=== PATIENT | male | born 1980 | race Caucasian/White ===

== ENCOUNTER 2017-01-25 13:21 | Emergency (ER) | payer MEDICAID ==
--- NOTE | 2017-01-25 13:48 | ED Physician Documentation ---
PD HPI LOWER EXT INJURY - Stated complaint Stated Complaint: KNEE LAC - Chief complaint Chief Complaint: Ext Problem - History obtained from History obtained from: Patient - History of Present Illness PD HPI LOW EXT INJURY LOCATION: Left, Knee Type of injury: Laceration (slip and slide last night and slid over piece of glass, cut to lateral aspect knee/proximal lower leg. It was cleaned out. Lac opens with ROM of the knee.) Timing - onset: Last night Timing - details: Abrupt onset, Still present Worsened by: Palpating, Other (knee movement; he does not feel there is FB present.) Associated symptoms: No: Weakness, Numbness Similar symptoms before: Has not had sx before Recently seen: Not recently seen Review of Systems Musculoskeletal: denies: Extremity swelling Neurologic: denies: Focal weakness, Numbness PD PAST MEDICAL HISTORY - Past Medical History Cardiovascular: Hypertension Neuro: Headache/migraine - Past Surgical History Past Surgical History: No - Present Medications Home Medications: Ambulatory Orders Medication Instructions Recorded Confirmed Quetiapine Fumarate [Seroquel] 300 mg PO BID 01/25/17 01/25/17 - Allergies Allergies/Adverse Reactions: Allergies Allergy/AdvReac Type Severity Reaction Status Date / Time acetaminophen [From Vicodin] Allergy Unknown Verified 03/09/16 01:06 hydrocodone bitartrate * Allergy Unknown Verified 03/09/16 01:06 [From Vicodin] - Social History Does the pt smoke?: Yes Smoking Status: Current every day smoker Does the pt drink ETOH?: No Does the pt have substance abuse?: Yes - Immunizations Immunizations are current?: Yes - POLST Patient has POLST: No PD ED PE NORMAL - Vitals Vital signs reviewed: Yes - General General: Alert and oriented X 3, No acute distress, Well developed/nourished - Derm Derm: Normal color, Warm and dry - Extremities Extremities: Other (left knee anterolateral at lower knee/upper lower leg with abrasion more anteriorly and laceration to side. It is 3 cm size and goes to fatty layer. Muscle just visible but does not seem involved. No FB seen. ) - Neuro Neuro: No motor deficit, No sensory deficit Results - Vitals Vitals: Oxygen O2 Source Room air Procedures - Laceration (location) left knee laterally Length in cm: 3 Wound type: Linear, Into subcut fat, Clean Neurovascular status: Sensory intact, Motor intact Tendon involvement: Tendon intact Skin layer closure: Nylon, Running, Size #-0 - enter number (4) Other: Patient tolerated well, No complications, Neurovascular intact, Dressing applied, Tetanus UTD Complexity: Simple PD MEDICAL DECISION MAKING - ED course Complexity details: considered differential (lac opens with ROM of the knee. Just to fatty layer, barely into muscle. Good ROM of the knee. ), d/w patient Departure - Departure Disposition: 01 Home, Self Care Clinical Impression: Knee laceration Qualifiers: Encounter type: initial encounter Laterality: left Qualified Code(s): S81.012A - Laceration without foreign body, left knee, initial encounter Knee abrasion Qualifiers: Encounter type: initial encounter Laterality: left Qualified Code(s): S80.212A - Abrasion, left knee, initial encounter Accidental fall Qualifiers: Encounter type: initial encounter Qualified Code(s): W19.XXXA - Unspecified fall, initial encounter Condition: Stable Record reviewed to determine appropriate education?: Yes Instructions: ED Abrasion, ED Laceration Ext Sutr Stap Tape Comments: It is okay to wash and shower. Clean off the wound twice a day with soap and water, or peroxide and water. Apply some antibiotic ointment to it to keep it moist. Also to watch for signs of infection such as purulence, redness or increasing pain. Return to your primary care or the ER at the specified time for suture removal. Tylenol or ibuprofen if needed for pains. Suture removal about 10 or 12 days. Discharge Date/Time: 01/25/17 15:00
[2017-01-25 15:05] VITALS: BP 140/89
== END 2017-01-25 15:00 | disposition home or self-care (01) ==
LOC: ED 13:21
DX: S81.012A Laceration without foreign body, left knee, initial encounter (principal); S80.212A Abrasion, left knee, initial encounter; W01.0XXA Fall on same level from slipping, tripping and stumbling without subsequent striking against object, initial encounter; I10 Essential (primary) hypertension; F17.200 Nicotine dependence, unspecified, uncomplicated
CPT/HCPCS: 12002; 99282; 99283

== ENCOUNTER 2017-03-11 14:01 | Emergency (ER) | payer MEDICAID ==
[2017-03-11] MEDS ORDERED: IBUPROFEN 800 MG TABLET PO STA (14:15)
[2017-03-11] MEDS ORDERED: CLINDAMYCIN 900 MG/50 ML 50 ML IV ONE ×2 (14:16→14:22)
--- NOTE | 2017-03-11 14:18 | ED Physician Documentation ---
PD HPI HEENT - Stated complaint Stated Complaint: FACIAL SWELLING - Chief complaint Chief Complaint: Heent - History obtained from History obtained from: Patient - History of Present Illness Timing - onset: Yesterday Timing - details: Gradual onset Location: Tooth Associated symptoms: Facial swelling, Headache Similar symptoms before: Diagnosis (Past history of dental abscesses in lower molars.) - Additional information Additional information: The patient is a 36-year-old male who presents with left facial swelling and toothache of a left upper molar. The pain started yesterday and is worse today. He feels like his left ear is plugged, and he has associated headache. He denies fever or sore throat. Past history is significant for tooth abscesses involving the lower molars. Review of Systems Constitutional: denies: Fever Eyes: denies: Decreased vision Ears: reports: Ear pain (left) Nose: denies: Congestion Throat: reports: Dental pain / toothache. denies: Sore throat Respiratory: denies: Dyspnea, Cough GI: denies: Nausea, Vomiting Skin: denies: Rash Musculoskeletal: denies: Neck pain Neurologic: reports: Headache PD PAST MEDICAL HISTORY - Past Medical History Past Medical History: Yes Cardiovascular: Hypertension Neuro: Headache/migraine - Past Surgical History Past Surgical History: No - Present Medications Home Medications: Ambulatory Orders Medication Instructions Recorded Confirmed Clindamycin [Cleocin] 300 mg PO Q6H 7 Days 03/11/17 oxyCODONE/ACET 5/325 [Percocet 5 1 - 2 tab PO Q4-6H PRN #12 tablet 03/11/17 mg/325 mg] - Allergies Allergies/Adverse Reactions: Allergies Allergy/AdvReac Type Severity Reaction Status Date / Time acetaminophen [From Vicodin] Allergy Unknown Verified 03/09/16 01:06 hydrocodone bitartrate * Allergy Unknown Verified 03/09/16 01:06 [From Vicodin] - Social History Does the pt smoke?: Yes Smoking Status: Current every day smoker Does the pt drink ETOH?: No Does the pt have substance abuse?: Yes - Immunizations Immunizations are current?: Yes - POLST Patient has POLST: No PD ED PE NORMAL - Vitals Vital signs reviewed: Yes (Initially hypertensive.) - General General: Alert and oriented X 3, Well developed/nourished - HEENT HEENT: Atraumatic, PERRL, EOMI, Ears normal, Pharynx benign, Other (Multiple decayed teeth are noted, with tenderness to palpation of the left upper molar. There is no gingival swelling. There is left facial swelling in the maxillary region, with associated tenderness to palpation.) - Neck Neck: Supple, no meningeal sign, No adenopathy - Cardiac Cardiac: RRR, No murmur - Respiratory Respiratory: No respiratory distress, Clear bilaterally - Abdomen Abdomen: Soft, Non tender - Derm Derm: No rash - Neuro Neuro: Alert and oriented X 3, No motor deficit, Normal speech Results - Vitals Vitals: Vital Signs - 24 hr 03/11/17 03/11/17 03/11/17 14:06 14:40 14:41 Temperature 36.3 C L Heart Rate 71 54 L 57 L Respiratory 18 22 20 Rate Blood Pressure 159/101 H 98/57 L 113/73 O2 Saturation 99 99 96 03/11/17 15:03 Temperature Heart Rate 68 Respiratory 18 Rate Blood Pressure 122/86 H O2 Saturation 97 Oxygen O2 Source Room air PD MEDICAL DECISION MAKING - ED course Complexity details: reviewed old records, re-evaluated patient, considered differential, d/w patient, d/w family ED course: The patient's presentation is significant for dental abscess with facial swelling. The abscess is not readily amenable to intraoral drainage. Treatment in the emergency department included administration of clindamycin 900 mg IV, and ibuprofen 800 mg orally. He is being discharged with prescriptions for clindamycin and for Percocet, 15 tablets. I discussed with him and his the importance of continued antibiotic therapy, dental follow- up, as well as potentially worrisome signs or symptoms that should prompt reevaluation in the emergency department. Departure - Departure Disposition: 01 Home, Self Care Clinical Impression: Dental abscess Condition: Stable Instructions: ED Abscess Dental Prescriptions: Clindamycin [Cleocin] 300 mg PO Q6H 7 Days oxyCODONE/ACET 5/325 [Percocet 5 mg/325 mg] 1 - 2 tab PO Q4-6H PRN #12 tablet PRN Reason: Pain Comments: Take clindamycin 4 times daily as prescribed. You can use ibuprofen or Naprosyn for its anti-inflammatory effect. You can use Percocet as prescribed if needed for pain. Follow up with a dentist as soon as possible. Call to schedule an appointment. Return to the emergency department if you develop increasing facial swelling, increasing pain, or otherwise worsening symptoms. Discharge Date/Time: 03/11/17 15:32
[2017-03-11] MEDS ORDERED: IBUPROFEN 800 MG TABLET PO ONE (14:22)
[2017-03-11 15:04] VITALS: BP 122/86
== END 2017-03-11 15:32 | disposition home or self-care (01) ==
LOC: ED 14:01
DX: K04.7 Periapical abscess without sinus (principal); I10 Essential (primary) hypertension; F17.200 Nicotine dependence, unspecified, uncomplicated
CPT/HCPCS: 96365; 99283; A9270

== ENCOUNTER 2019-03-31 23:48 | Emergency (ER) | payer MEDICAID ==
--- NOTE | 2019-04-01 01:46 | ED Physician Documentation ---
PD HPI HEENT - Stated complaint Stated Complaint: TOOTH PAIN/SWELLING - Chief complaint Chief Complaint: Heent - History obtained from History obtained from: Patient - History of Present Illness Timing - onset: How many days ago (3) Timing - duration: Days Timing - details: Gradual onset Pain level now: 6 Location: Tooth Improves: Nothing Associated symptoms: No: Fever Recently seen: Not recently seen - Additional information Additional information: c/o right jaw pain and swelling x 3 days, started with localized pain adjacent to broken tooth 3 days ago. Review of Systems Constitutional: denies: Fever Throat: reports: Dental pain / toothache PD PAST MEDICAL HISTORY - Past Medical History Past Medical History: Yes Cardiovascular: Hypertension - Past Surgical History Past Surgical History: No - Present Medications Home Medications: Ambulatory Orders Medication Instructions Recorded Confirmed Clindamycin [Cleocin] 300 mg PO Q6H 7 Days capsule 03/11/17 oxyCODONE/ACET 5/325 [Percocet 5 1 - 2 tab PO Q4-6H PRN #12 tablet 03/11/17 mg/325 mg] Clindamycin HCl [Clindamycin 300MG 300 mg PO Q6H #28 capsule 04/01/19 CAP] Oxycodone HCl/Acetaminophen 1 - 2 each PO Q6H PRN #14 tablet 04/01/19 [Percocet 5-325 mg Tablet] - Allergies Allergies/Adverse Reactions: Allergies Allergy/AdvReac Type Severity Reaction Status Date / Time acetaminophen [From Vicodin] Allergy Unknown Verified 03/09/16 01:06 hydrocodone bitartrate * Allergy Unknown Verified 03/09/16 01:06 [From Vicodin] - Social History Does the pt smoke?: Yes Smoking Status: Current every day smoker Does the pt drink ETOH?: No Does the pt have substance abuse?: Yes - Immunizations Immunizations are current?: Yes - POLST Patient has POLST: No PD ED PE NORMAL - Vitals Vital signs reviewed: Yes - General General: Alert and oriented X 3, No acute distress, Well developed/nourished - HEENT HEENT: Moist mucous membranes PD ED PE EXPANDED - HEENT HEENT: Dental TTP (right mandibular second premolar; no swelling or erythema noted (neither introaral nor facial)) Results - Vitals Vitals: Oxygen O2 Source Room air PD MEDICAL DECISION MAKING - ED course Complexity details: reviewed old records, considered differential, d/w patient Departure - Departure Disposition: 01 Home, Self Care Clinical Impression: Dental infection Condition: Good Instructions: ED Tooth Pain Prescriptions: Clindamycin HCl [Clindamycin 300MG CAP] 300 mg PO Q6H #28 capsule Oxycodone HCl/Acetaminophen [Percocet 5-325 mg Tablet] 1 - 2 each PO Q6H PRN #14 tablet PRN Reason: pain Comments: Follow up with your dentist: call to arrange for next available appointment Discharge Date/Time: 04/01/19 02:07
[2019-04-01] MEDS ORDERED: oxyCODONE 5 MG TABLET PO STA (01:54)
[2019-04-01] MEDS ORDERED: CLINDAMYCIN 150 MG CAPSULE PO STA (01:54)
[2019-04-01 02:07] VITALS: BP 162/117
== END 2019-04-01 02:07 | disposition home or self-care (01) ==
LOC: ED 23:48
DX: K04.7 Periapical abscess without sinus (principal); I10 Essential (primary) hypertension; F17.200 Nicotine dependence, unspecified, uncomplicated
CPT/HCPCS: 99282; 99283; A9270